=== PATIENT | male | born 1975 | race Caucasian/White ===

== ENCOUNTER 2016-11-19 18:14 | Emergency (ER) | payer BC ==
[2016-11-19 18:23] VITALS: TEMP 36.8
[2016-11-19] MEDS ORDERED: SODIUM CHLORIDE 0.9% 1000ML 1,000 ML IV STA (18:25)
[2016-11-19] MEDS ORDERED: LORAZEPAM 2 MG/ML 1 ML VIAL IV STA (18:25)
--- NOTE | 2016-11-19 18:33 | EMERGENCY ROOM VISIT NOTE ---
History Report prepared by Jesus Manuel: Buzz Pfeiffer Under the Supervision of: Dr. Ben Valerio D.O. First contact with patient: 18:19 Stated Complaint: CARDIAC History of Present Illness The patient is a 40 year old male who presents to the Emergency Room with complaints of heart palpitations that began about an hour ago. At this time, he was at the [employer] Football game today when he began to feel his insides start to "race." He then began to not be able to sit still and began to shake. He has a history of panic/anxiety attacks but they have never lasted this long. He denies any chest pain, shortness of breath, nausea, or vomiting. He has never seen a doctor for this and takes no medications for it. He has a past medical history of hypertension, hyperlipidemia, MRSA, and shingles. He was recently treated for MRSA on his armpits. His only surgery was his wisdom teeth removal. He smokes 1 pack of cigarettes a day. Source of History: patient Onset: about 1 hour ago Position: other (Heart) Symptom Intensity: moderate Quality: other (Palpitations) Timing: constant Associated Symptoms: No chest pain, No SOB, No nausea, No vomiting Note: He feels shaky. Review of Systems See HPI for pertinent positives & negatives. A total of 10 systems reviewed and were otherwise negative. Past Medical & Surgical Medical Problems: (1) HLD (hyperlipidemia) (2) HTN (hypertension) Surgical Problems: (1) H/O wisdom tooth extraction Family History Patient reports no known family medical history. Social History Smoking Status: Current Every Day Smoker Smokeless Tobacco Use: No Alcohol Use: occasionally Drug Use: none Marital Status: Housing Status: lives with family Occupation Status: employed Current/Historical Medications Scheduled Mupirocin (Bactroban), 1 APPLN TOP UD Rosuvastatin Calcium (Crestor), 10 MG PO DAILY Sulfa/Trimethoprim (Bactrim Ds 800MG/160MG), 2 TAB PO BID Valacyclovir Hcl (Valtrex), 1 GM PO TID Allergies Coded Allergies: No Known Allergies (Unverified , 11/19/16) Physical Exam Vital Signs Date Time Temp Pulse Resp B/P (MAP) Pulse Ox O2 Delivery O2 Flow Rate FiO2 11/19/16 20:40 95 18 123/73 95 11/19/16 19:56 94 20 143/86 97 Room Air 11/19/16 19:00 Room Air 11/19/16 18:27 130 11/19/16 18:23 36.8 130 20 158/93 99 Room Air Physical Exam GENERAL: Patient is awake, alert, and in no acute distress. Patient is standing in the room and very anxious appearing. EYES: The conjunctivae are clear. The pupils are round and reactive. EARS, NOSE, MOUTH AND THROAT: The nose is without any evidence of any deformity. Mucous membranes are moist tongue is midline NECK: The neck is nontender and supple. RESPIRATORY: Normal respiratory effort is noted there is no evidence of wheezing rhonchi or rales CARDIOVASCULAR: Tachycardic rate with a regular rhythm noted, No definite murmurs rubs or gallops normal S1 normal S2 GASTROINTESTINAL: The abdomen is soft. Bowel sounds are present in all quadrants. Abdomen is nontender MUSCULOSKELETAL/EXTREMITIES: There is no evidence of gross deformity full range of motion is noted in the hips and shoulders SKIN: There is no obvious evidence of any rash. There are no petechiae, pallor or cyanosis noted. NEUROLOGIC: Patient is awake alert and oriented x3 Medical Decision & Procedures ER Provider Diagnostic Interpretation: Radiology results as stated below per my review and radiologist interpretation: CHEST ONE VIEW PORTABLE CLINICAL HISTORY: 40 years-old Male presenting with EVALUATE RESPIRATORY DISTRESS.DYSPNEA. TECHNIQUE: Portable upright AP view of the chest was obtained. COMPARISON: None. FINDINGS: Cardiomediastinal silhouette normal. Lungs and pleural spaces clear. Osseous structures normal. Upper abdomen normal. IMPRESSION: 1. No acute cardiopulmonary disease. Electronically signed by: Travon Luna M.D. 11/19/2016 7:08 PM Dictated Date/Time: 11/19/2016 7:07 PM Laboratory Results 11/19/16 18:50 Red Blood Count 4.40, Mean Corpuscular Volume 94.5, Mean Corpuscular Hemoglobin 32.3, Mean Corpuscular Hemoglobin Concent 34.1, Mean Platelet Volume 9.3, Neutrophils (%) (Auto) 63.1, Lymphocytes (%) (Auto) 25.5, Monocytes (%) (Auto) 5.0, Eosinophils (%) (Auto) 5.4, Basophils (%) (Auto) 0.7, Neutrophils # (Auto) 4.85, Lymphocytes # (Auto) 1.95, Monocytes # (Auto) 0.38, Eosinophils # (Auto) 0.41, Basophils # (Auto) 0.05 11/19/16 18:50 Test 11/19/16 18:50 White Blood Count 7.66 K/uL (4.8-10.8) Red Blood Count 4.40 M/uL (4.7-6.1) Hemoglobin 14.2 g/dL (14.0-18.0) Hematocrit 41.6 % (42-52) Mean Corpuscular Volume 94.5 fL (80-100) Mean Corpuscular Hemoglobin 32.3 pg (25-34) Mean Corpuscular Hemoglobin Concent 34.1 g/dl (32-36) Platelet Count 268 K/uL (130-400) Mean Platelet Volume 9.3 fL (7.4-10.4) Neutrophils (%) (Auto) 63.1 % Lymphocytes (%) (Auto) 25.5 % Monocytes (%) (Auto) 5.0 % Eosinophils (%) (Auto) 5.4 % Basophils (%) (Auto) 0.7 % Neutrophils # (Auto) 4.85 K/uL (1.4-6.5) Lymphocytes # (Auto) 1.95 K/uL (1.2-3.4) Monocytes # (Auto) 0.38 K/uL (0.11-0.59) Eosinophils # (Auto) 0.41 K/uL (0-0.5) Basophils # (Auto) 0.05 K/uL (0-0.2) RDW Standard Deviation 45.8 fL (36.4-46.3) RDW Coefficient of Variation 13.4 % (11.5-14.5) Immature Granulocyte % (Auto) 0.3 % Immature Granulocyte # (Auto) 0.02 K/uL (0.00-0.02) Prothrombin Time 11.1 SECONDS (9.0-12.0) Prothromb Time International Ratio 1.0 (0.9-1.1) Activated Partial Thromboplast Time 29.1 SECONDS (21.0-31.0) Partial Thromboplastin Ratio 1.1 Anion Gap 9.0 mmol/L (3-11) Estimated GFR () 71.8 Estimated GFR (Non- 62.0 BUN/Creatinine Ratio 10.8 (10-20) Calcium Level 8.9 mg/dl (8.5-10.1) Magnesium Level 1.8 mg/dl (1.8-2.4) Total Bilirubin 0.1 mg/dl (0.2-1) Aspartate Amino Transf (AST/SGOT) 38 U/L (15-37) Alanine Aminotransferase (ALT/SGPT) 56 U/L (12-78) Alkaline Phosphatase 101 U/L (45-117) Total Creatine Kinase 211 U/L (39-308) Creatine Kinase MB 1.9 ng/ml (0.5-3.6) Creatine Kinase MB Ratio 0.9 (0-3.0) Troponin I < 0.015 ng/ml (0-0.045) Total Protein 7.4 gm/dl (6.4-8.2) Albumin 4.1 gm/dl (3.4-5.0) Globulin 3.3 gm/dl (2.5-4.0) Albumin/Globulin Ratio 1.2 (0.9-2) Thyroid Stimulating Hormone (TSH) 1.050 uIu/ml (0.300-4.500) Free Thyroxine 0.89 ng/dl (0.80-1.60) Laboratory results per my review. Medications Administered Medications (Trade) Dose Ordered Sig/Teddy Route Start Time Stop Time Status Last Admin Dose Admin Sodium Chloride 1,000 ml @ 999 mls/hr Q1H1M STAT IV 11/19/16 18:25 11/19/16 19:25 DC 11/19/16 18:57 999 MLS/HR Lorazepam (Ativan Inj) 1 mg NOW STAT IV 11/19/16 18:25 11/19/16 18:27 DC 11/19/16 18:57 1 MG Potassium Chloride (Klor-Con M10) 10 meq NOW STAT PO 11/19/16 20:23 11/19/16 20:24 DC 11/19/16 20:33 10 MEQ Lorazepam (Ativan 1MG Home Pack) 1 homepack UD ONCE PO 11/19/16 20:30 11/19/16 20:31 DC 11/19/16 20:32 1 HOMEPACK ECG Indication: palpitations Rate (beats per minute): 102 Rhythm: sinus tachycardia Findings: no ectopy, other (No STS abnormalities) Comparison ECG Date: no prior available ED Course 1818: The patient was evaluated in room C1. A complete history and physical examination were performed. 1824: Ordered Ativan Inj 1 mg IV, NSS 1,000 ml @ 999 mls/hr IV 1941: Ordered Tylenol Tab 1000 mg PO 2022: Ordered Potassium Chloride 10 meq PO 2029: Ordered Lorazepam 1 homepack PO 2109: Upon reevaluation, the patient is resting. I discussed the results and treatment plan with him. He verbalized agreement of the treatment plan. He was discharged home. Medical Decision Differential diagnosis: Etiologies such as premature contractions, electrolyte abnormality, cardiac dysrhythmia, thyroid dysfunction, pulmonary embolism, infection, gastrointestinal, as well as others were entertained. Nursing notes reviewed. Additional history is obtained from the patient's significant other. The patient is a 40-year-old male who presented to the emergency department for evaluation of palpitations. The patient was very anxious when he arrived. He did not wish to sit down in the bed. He stated that he is had a similar episode in the past especially with anxiety. The patient did not have any specific stressors. He described some chest discomfort. The patient did not appear to have any acute ischemic changes on his EKG. There is no previous tracing for comparison. I discussed the patient's laboratory and radiographic studies with him. He was treated with Ativan IV fluids in the emergency department at his symptoms significantly improved. The patient was encouraged to rest and avoid any strenuous activity. He was also encouraged to follow-up with his family doctor's is possible discuss further testing such as echocardiogram and Holter monitor. He was also encouraged return to the emergency Department immediately if symptoms change worsen or the need arises. Medication Reconcilliation Current Medication List: was personally reviewed by me Blood Pressure Screening Patient's blood pressure: Elevated blood pressure Blood pressure disposition: Referred to PCP Impression Primary Impression: Palpitations Additional Impressions: Sinus tachycardia Hypokalemia Scribe Attestation The scribe's documentation has been prepared under my direction and personally reviewed by me in its entirety. I confirm that the note above accurately reflects all work, treatment, procedures, and medical decision making performed by me. Departure Information Dispostion Home / Self-Care Referrals No Doctor, Assigned (PCP) Forms HOME CARE DOCUMENTATION FORM, IMPORTANT VISIT INFORMATION Patient Instructions Heart Palpitations, My [facility] Additional Instructions Call your family to schedule a follow-up appointment. Rest and avoid any strenuous activity. Drink plenty clear liquids and continue all medications as prescribed. Return to the emergency department immediately if symptoms change worsen or the need arises. Discussed the possibility with your primary care physician that he may require further studies such as an echocardiogram and/or a Holter monitor to further evaluate the cause of her palpitations. Problem Qualifiers
[2016-11-19] MEDS ORDERED: BCTCR TOP (18:43)
[2016-11-19] MEDS ORDERED: VALA1TAB31 PO (18:43)
[2016-11-19] MEDS ORDERED: CRS10 PO (18:43)
[2016-11-19] MEDS ORDERED: SULF800T23 PO (18:43)
[2016-11-19 19:07] LABS: BASO % 0.7 %; BASO ABS # 0.05 K/uL (0-0.2); COMPLETE YES; EOS % 5.4 %; HEMATOCRIT 41.6 % (42-52); IG% 0.3 %; LYMPH % 25.5 %; LYMPH ABS # 1.95 K/uL (1.2-3.4); MEAN CELL VOLUME 94.5 fL (80-100); MEAN CORPUSCULAR HEMOGLOBIN 32.3 pg (25-34); MEAN CORPUSCULAR HGB CONC 34.1 g/dl (32-36); MEAN PLATELET VOLUME 9.3 fL (7.4-10.4); NEUT % 63.1 %; PLATELET COUNT 268 K/uL (130-400); WHITE BLOOD COUNT 7.66 K/uL (4.8-10.8)
--- NOTE | 2016-11-19 19:09 | DIAGNOSTIC IMAGING REPORT ---
CHEST ONE VIEW PORTABLE CLINICAL HISTORY: 40 years-old Male presenting with EVALUATE RESPIRATORY DISTRESS.DYSPNEA. TECHNIQUE: Portable upright AP view of the chest was obtained. COMPARISON: None. FINDINGS: Cardiomediastinal silhouette normal. Lungs and pleural spaces clear. Osseous structures normal. Upper abdomen normal. IMPRESSION: 1. No acute cardiopulmonary disease. Electronically signed by: Travon Luna M.D. 11/19/2016 7:08 PM Dictated Date/Time: 11/19/2016 7:07 PM
[2016-11-19 19:22] LABS: ALT/SGPT 56 U/L (12-78); BLOOD UREA NITROGEN 15 mg/dl (7-18); BUN/CREATININE RATIO 10.8 (10-20); CALCIUM 8.9 mg/dl (8.5-10.1); CARBON DIOXIDE 25 mmol/L (21-32); CHLORIDE 102 mmol/L (98-107); GLUCOSE 134 mg/dl (70-99); MAGNESIUM 1.8 mg/dl (1.8-2.4); PARTIAL THROMBOPLASTIN RATIO 1.1; POTASSIUM 3.1 mmol/L (3.5-5.1); PROTHROMBIN TIME (PATIENT) 11.1 SECONDS (9.0-12.0); SODIUM 136 mmol/L (136-145)
[2016-11-19 19:30] LABS: ALB/GLOB RATIO 1.2 (0.9-2); ALKALINE PHOSPHATASE 101 U/L (45-117); AST/SGOT 38 U/L (15-37); CKMB/CK RATIO 0.9 (0-3.0)
[2016-11-19] MEDS ORDERED: ACETAMINOPHEN 500 MG TAB PO STA (19:42)
[2016-11-19] MEDS ORDERED: POTASSIUM CHLORIDE 10 MEQ TABCR PO STA (20:23)
[2016-11-19] MEDS ORDERED: ATIVAN 1MG HOMEPACK PO ONE (20:30)
[2016-11-19 20:40] VITALS: BP 123/73; PULSE 95; O2SAT 95
== END 2016-11-19 20:41 | disposition home or self-care (01) ==
LOC: EDBD 18:14 → C.EDC 18:17
DX: R00.2 Palpitations (principal); R00.0 Tachycardia, unspecified; E87.6 Hypokalemia; I10 Essential (primary) hypertension; E78.5 Hyperlipidemia, unspecified; F17.210 Nicotine dependence, cigarettes, uncomplicated; Z86.14 Personal history of Methicillin resistant Staphylococcus aureus infection; Z86.19 Personal history of other infectious and parasitic diseases